=== PATIENT | female | born 1940 | race Caucasian/White ===

== ENCOUNTER 2022-10-27 21:01 | Inpatient (IN) | payer MEDICARE, OTHER ==
[~2022-10-27] VITALS: Ht 160 cm; Wt 71.2 kg
[2022-10-27 20:30] VITALS: BP 103/55; TEMP 98.4; O2SAT 90
[2022-10-27] MEDS ORDERED: REMEDY ESSENTIAL ZINC PASTE 113 GM TOP PRN (21:15)
[2022-10-27] MEDS ORDERED: ASPI-495 PO (21:46)
[2022-10-27] MEDS ORDERED: LOSA100T31 PO (21:46)
[2022-10-27] MEDS ORDERED: AMLO-212 PO (21:46)
[2022-10-27] MEDS ORDERED: DIVA250T4 PO (21:46)
[2022-10-27] MEDS ORDERED: MONT10TA22 PO (21:46)
[2022-10-27] MEDS ORDERED: IPRA0.2S48 NEB ×2 (21:46)
[2022-10-27] MEDS ORDERED: ATOR40TA PO (21:46)
[2022-10-27] MEDS ORDERED: HYDR-3980 PO (21:46)
[2022-10-27] MEDS ORDERED: QUET50TA PO (21:46)
[2022-10-27] MEDS ORDERED: DOCU100T2 PO (21:46)
[2022-10-27] MEDS ORDERED: CELE200C PO (21:46)
[2022-10-27] MEDS ORDERED: ACET-3117 PO (21:46)
[2022-10-27] MEDS ORDERED: IPRATROPIUM BROMIDE 0.5 MG/2.5 ML NEBU NEB SCH (22:45)
[2022-10-27] MEDS ORDERED: HYDROCODONE/APAP 10-325 MG TABLET PO PRN (22:45)
[2022-10-28] VITALS (11 sets, daily range): BP systolic 101–121; BP diastolic 44–75; TEMP 98.1–98.8; O2SAT 91–99
[2022-10-28] MEDS ORDERED: IPRATROPIUM BROMIDE 0.5 MG/2.5 ML NEBU NEB SCH
[2022-10-28] MEDS ORDERED: DIVALPROEX 250 MG TABLET.DR PO SCH (09:00)
[2022-10-28] MEDS ORDERED: QUETIAPINE FUMARATE 25 MG TABLET PO SCH (09:00)
[2022-10-28] MEDS ORDERED: DOCUSATE SODIUM 100 MG CAPSULE PO SCH (09:00)
[2022-10-28] MEDS ORDERED: MONTELUKAST SODIUM 10 MG TABLET PO SCH ×2 (09:00)
[2022-10-28] MEDS ORDERED: ASPIRIN EC 81 MG TABLET.DR PO SCH ×2 (09:00)
[2022-10-28] MEDS ORDERED: REMEDY ESSENTIAL ZINC PASTE 113 GM TOP PRN (09:30)
[2022-10-28] MEDS: DOCUSATE SODIUM 100 MG CAPSULE PO SCH ×2 (09:52→17:14)
[2022-10-28] MEDS: DIVALPROEX 250 MG TABLET.DR PO SCH ×2 (09:52→20:30)
[2022-10-28] MEDS: QUETIAPINE FUMARATE 25 MG TABLET PO SCH ×2 (09:52→17:14)
[2022-10-28] MEDS: IPRATROPIUM BROMIDE 0.5 MG/2.5 ML NEBU NEB SCH ×3 (11:30→20:49)
[2022-10-28] MEDS ORDERED: ERGO500040 PO (12:54)
[2022-10-28] MEDS ORDERED: OMEP1CAP25 PO (12:56)
[2022-10-28] MEDS ORDERED: FURO20TA4 PO (12:57)
[2022-10-28] MEDS ORDERED: MIRA25TA PO (12:58)
[2022-10-28] MEDS ORDERED: ICOS1CAP PO (12:59)
[2022-10-28] MEDS ORDERED: QUET100T PO (15:32)
[2022-10-28] MEDS: HYDROCODONE/APAP 10-325 MG TABLET PO PRN (17:52)
[2022-10-28] MEDS ORDERED: ATORVASTATIN 40 MG TABLET PO SCH ×2 (21:00)
[2022-10-29] VITALS (12 sets, daily range): BP systolic 109–122; BP diastolic 48–64; TEMP 97.6–99; O2SAT 90–99
[2022-10-29] MEDS: IPRATROPIUM BROMIDE 0.5 MG/2.5 ML NEBU NEB SCH ×4 (07:45→20:50)
[2022-10-29] MEDS: QUETIAPINE FUMARATE 25 MG TABLET PO SCH ×2 (08:40→16:11)
[2022-10-29] MEDS: MONTELUKAST SODIUM 10 MG TABLET PO SCH (08:40)
[2022-10-29] MEDS: ASPIRIN EC 81 MG TABLET.DR PO SCH (08:40)
[2022-10-29] MEDS: DIVALPROEX 250 MG TABLET.DR PO SCH ×2 (08:40→20:56)
[2022-10-29] MEDS: DOCUSATE SODIUM 100 MG CAPSULE PO SCH ×2 (08:45→16:11)
[2022-10-29] MEDS: HYDROCODONE/APAP 10-325 MG TABLET PO PRN (13:23)
[2022-10-29] MEDS: ATORVASTATIN 40 MG TABLET PO SCH (20:56)
[2022-10-29] MEDS: ENOXAPARIN SODIUM 40 MG/0.4 ML DISP.SYRIN SQ SCH (21:04)
[2022-10-30] VITALS (13 sets, daily range): BP systolic 94–110; BP diastolic 48–64; TEMP 98.3–99.3; O2SAT 92–99
[2022-10-30] MEDS: HYDROCODONE/APAP 10-325 MG TABLET PO PRN (06:02)
[2022-10-30] MEDS: PANTOPRAZOLE SODIUM 40 MG TABLET.DR PO SCH (06:07)
[2022-10-30 06:18] LABS: BASOPHILS % (AUTO) 0.2 % (0.0-2.0); EOSINOPHILS # (AUTO) 0.2 K/uL (0.0-0.7); EOSINOPHILS % (AUTO) 1.7 % (0.0-7.0); HEMATOCRIT 24.1 % (31.2-41.9); HEMOGLOBIN 8.3 g/dL (10.9-14.3); LYMPHOCYTES # (AUTO) 3.2 K/uL (0.8-4.8); LYMPHOCYTES % (AUTO) 34.7 % (20.5-51.5); MEAN CORPUSCULAR HEMOGLOBIN 31.9 uug (24.7-32.8); MEAN CORPUSCULAR HGB CONC 34 g/dL (32.3-35.6); MONOCYTES % (AUTO) 10.9 % (0.0-11.0); NEUTROPHILS # (AUTO) 4.8 K/uL (1.8-8.9); NEUTROPHILS % (AUTO) 52.5 % (38.5-71.5); PLATELET COUNT (AUTO) 190 K/uL (179-408); RED BLOOD CELL COUNT(AUTO) 2.59 MIL/uL (3.63-4.92); WHITE BLOOD COUNT (AUTO) 9.1 K/uL (3.8-11.8)
[2022-10-30 06:26] LABS: DIFFERENTIAL COMMENT 1
[2022-10-30 06:42] LABS: CALCIUM 8.4 mg/dL (8.5-10.1); CARBON DIOXIDE 33 mmol/L (21-32); CHLORIDE 100 mmol/L (98-107); CREATININE 0.8 mg/dL (0.6-1.3); GLUCOSE 111 mg/dL (74-106); MAGNESIUM 1.8 mg/dL (1.8-2.4); PHOSPHOROUS 4.1 mg/dL (2.5-4.9); POTASSIUM 4.2 mmol/L (3.5-5.1); SODIUM SERUM 138 mmol/L (136-145); UREA NITROGEN, BLOOD 17 mg/dL (7-18)
[2022-10-30] MEDS: IPRATROPIUM BROMIDE 0.5 MG/2.5 ML NEBU NEB SCH ×4 (07:27→19:37)
[2022-10-30] MEDS: ASPIRIN EC 81 MG TABLET.DR PO SCH (08:11)
[2022-10-30] MEDS: MONTELUKAST SODIUM 10 MG TABLET PO SCH (08:11)
[2022-10-30] MEDS: DIVALPROEX 250 MG TABLET.DR PO SCH ×2 (08:11→21:04)
[2022-10-30] MEDS: DOCUSATE SODIUM 100 MG CAPSULE PO SCH ×2 (08:11→16:08)
[2022-10-30] MEDS: QUETIAPINE FUMARATE 25 MG TABLET PO SCH ×2 (08:11→16:08)
[2022-10-30] MEDS: ATORVASTATIN 40 MG TABLET PO SCH (21:04)
[2022-10-30] MEDS: ENOXAPARIN SODIUM 40 MG/0.4 ML DISP.SYRIN SQ SCH (21:07)
[2022-10-31] VITALS (14 sets, daily range): BP systolic 94–114; BP diastolic 43–60; TEMP 97.2–98.7; O2SAT 92–99
[2022-10-31] MEDS: HYDROCODONE/APAP 10-325 MG TABLET PO PRN ×3 (00:05→13:46)
[2022-10-31] MEDS: PANTOPRAZOLE SODIUM 40 MG TABLET.DR PO SCH (06:33)
[2022-10-31] MEDS: IPRATROPIUM BROMIDE 0.5 MG/2.5 ML NEBU NEB SCH ×4 (08:14→19:56)
[2022-10-31] MEDS: QUETIAPINE FUMARATE 25 MG TABLET PO SCH ×2 (09:23→16:18)
[2022-10-31] MEDS: DIVALPROEX 250 MG TABLET.DR PO SCH ×2 (09:24→20:54)
[2022-10-31] MEDS: ASPIRIN EC 81 MG TABLET.DR PO SCH (09:24)
[2022-10-31] MEDS: DOCUSATE SODIUM 100 MG CAPSULE PO SCH ×2 (09:24→16:18)
[2022-10-31] MEDS: MONTELUKAST SODIUM 10 MG TABLET PO SCH (09:25)
[2022-10-31] MEDS: GLUCERNA SHAKE 237 ML CAN PO SCH (09:26)
[2022-10-31] MEDS: ATORVASTATIN 40 MG TABLET PO SCH (20:54)
[2022-10-31] MEDS: ENOXAPARIN SODIUM 40 MG/0.4 ML DISP.SYRIN SQ SCH (20:55)
[2022-11-01] VITALS (11 sets, daily range): BP systolic 98–117; BP diastolic 47–52; TEMP 97.9–98.6; O2SAT 92–99
[2022-11-01] MEDS: PANTOPRAZOLE SODIUM 40 MG TABLET.DR PO SCH (06:07)
[2022-11-01] MEDS: IPRATROPIUM BROMIDE 0.5 MG/2.5 ML NEBU NEB SCH ×4 (07:17→21:35)
[2022-11-01 07:18] LABS: BASOPHILS % (AUTO) 0.3 % (0.0-2.0); EOSINOPHILS # (AUTO) 0.2 K/uL (0.0-0.7); EOSINOPHILS % (AUTO) 2.2 % (0.0-7.0); HEMATOCRIT 21.2 % (31.2-41.9); LYMPHOCYTES % (AUTO) 35.4 % (20.5-51.5); MEAN CORPUSCULAR HEMOGLOBIN 31.6 uug (24.7-32.8); MEAN CORPUSCULAR HGB CONC 34 g/dL (32.3-35.6); MEAN CORPUSCULAR VOLUME 93.4 fL (75.5-95.3); MONOCYTES % (AUTO) 11.9 % (0.0-11.0); NEUTROPHILS # (AUTO) 4.3 K/uL (1.8-8.9); NEUTROPHILS % (AUTO) 50.2 % (38.5-71.5); PLATELET COUNT (AUTO) 253 K/uL (179-408); RED CELL DISTRIBUTION WIDTH 14.2 % (12.3-17.7); WHITE BLOOD COUNT (AUTO) 8.5 K/uL (3.8-11.8)
[2022-11-01 07:33] LABS: DIFFERENTIAL COMMENT 1; HEMOGLOBIN 7.2 g/dL (10.9-14.3); RED BLOOD CELL COUNT(AUTO) 2.27 MIL/uL (3.63-4.92)
[2022-11-01] MEDS ORDERED: OXYCODONE HCL 5 MG TABLET PO SCH ×2 (08:00→17:00)
[2022-11-01] MEDS: DIVALPROEX 250 MG TABLET.DR PO SCH ×2 (08:01→20:43)
[2022-11-01] MEDS: DOCUSATE SODIUM 100 MG CAPSULE PO SCH ×2 (08:01→16:06)
[2022-11-01] MEDS: MONTELUKAST SODIUM 10 MG TABLET PO SCH (08:02)
[2022-11-01] MEDS: QUETIAPINE FUMARATE 25 MG TABLET PO SCH ×2 (08:02→16:06)
[2022-11-01] MEDS: ASPIRIN EC 81 MG TABLET.DR PO SCH (08:02)
[2022-11-01] MEDS: GLUCERNA SHAKE 237 ML CAN PO SCH (08:02)
[2022-11-01 08:20] LABS: IRON, SERUM 42 ug/dL (50-175)
[2022-11-01 08:28] LABS: ALANINE AMINOTRANSFERASE 19 U/L (14-59); ALBUMIN 2.5 g/dL (3.4-5.0); ALKALINE PHOSPHATASE 57 U/L (50-136); ASPARTATE AMINOTRANSFERASE 13 U/L (15-37); BILIRUBIN,TOTAL 0.6 mg/dL (0.2-1.0); CALCIUM 8.7 mg/dL (8.5-10.1); CARBON DIOXIDE 34 mmol/L (21-32); CHLORIDE 101 mmol/L (98-107); CREATININE 0.9 mg/dL (0.6-1.3); GLUCOSE 104 mg/dL (74-106); MAGNESIUM 2.1 mg/dL (1.8-2.4); NT-PRO BNP 132 pg/mL (0-125); PHOSPHOROUS 3.9 mg/dL (2.5-4.9); POTASSIUM 4.3 mmol/L (3.5-5.1); SODIUM SERUM 138 mmol/L (136-145); TOTAL PROTEIN, SERUM 6.4 g/dL (6.4-8.2); UREA NITROGEN, BLOOD 22 mg/dL (7-18)
[2022-11-01 09:10] LABS: CHOLESTEROL < 50 mg/dL (<200); HDL CHOLESTEROL 39 mg/dL (40-60); TRIGLYCERIDES 197 MG/DL (30-150)
[2022-11-01] MEDS: ATORVASTATIN 40 MG TABLET PO SCH (20:43)
[2022-11-01] MEDS: ENOXAPARIN SODIUM 40 MG/0.4 ML DISP.SYRIN SQ SCH (20:44)
[2022-11-02] VITALS (13 sets, daily range): BP systolic 96–109; BP diastolic 50–60; TEMP 97.8–98.5; O2SAT 93–99
[2022-11-02] MEDS: PANTOPRAZOLE SODIUM 40 MG TABLET.DR PO SCH (06:11)
[2022-11-02 06:34] LABS: BASOPHILS % (AUTO) 0.4 % (0.0-2.0); EOSINOPHILS # (AUTO) 0.2 K/uL (0.0-0.7); EOSINOPHILS % (AUTO) 1.7 % (0.0-7.0); HEMATOCRIT 21.7 % (31.2-41.9); LYMPHOCYTES # (AUTO) 2.5 K/uL (0.8-4.8); LYMPHOCYTES % (AUTO) 26.5 % (20.5-51.5); MEAN CORPUSCULAR HEMOGLOBIN 31.6 uug (24.7-32.8); MEAN CORPUSCULAR HGB CONC 34 g/dL (32.3-35.6); MEAN CORPUSCULAR VOLUME 94.1 fL (75.5-95.3); MONOCYTES # (AUTO) 1.1 K/uL (0.1-1.30); MONOCYTES % (AUTO) 11.5 % (0.0-11.0); NEUTROPHILS # (AUTO) 5.6 K/uL (1.8-8.9); NEUTROPHILS % (AUTO) 59.9 % (38.5-71.5); PLATELET COUNT (AUTO) 298 K/uL (179-408); RED CELL DISTRIBUTION WIDTH 14.7 % (12.3-17.7); WHITE BLOOD COUNT (AUTO) 9.3 K/uL (3.8-11.8)
[2022-11-02 06:49] LABS: CALCIUM 8.6 mg/dL (8.5-10.1); CARBON DIOXIDE 33 mmol/L (21-32); CHLORIDE 102 mmol/L (98-107); CREATININE 0.8 mg/dL (0.6-1.3); GLUCOSE 117 mg/dL (74-106); MAGNESIUM 2.1 mg/dL (1.8-2.4); PHOSPHOROUS 3.8 mg/dL (2.5-4.9); POTASSIUM 4.2 mmol/L (3.5-5.1); SODIUM SERUM 140 mmol/L (136-145); UREA NITROGEN, BLOOD 18 mg/dL (7-18)
[2022-11-02 06:58] LABS: DIFFERENTIAL COMMENT 1; HEMOGLOBIN 7.3 g/dL (10.9-14.3); RED BLOOD CELL COUNT(AUTO) 2.31 MIL/uL (3.63-4.92)
[2022-11-02] MEDS: IPRATROPIUM BROMIDE 0.5 MG/2.5 ML NEBU NEB SCH ×4 (07:11→21:12)
[2022-11-02] MEDS: DOCUSATE SODIUM 100 MG CAPSULE PO SCH ×2 (08:34→17:55)
[2022-11-02] MEDS: DIVALPROEX 250 MG TABLET.DR PO SCH ×2 (08:34→20:55)
[2022-11-02] MEDS: ASPIRIN EC 81 MG TABLET.DR PO SCH (08:34)
[2022-11-02] MEDS: QUETIAPINE FUMARATE 25 MG TABLET PO SCH ×2 (08:34→17:55)
[2022-11-02] MEDS: CYANOCOBALAMIN 1000 MCG/ML VIAL IM SCH (08:35)
[2022-11-02] MEDS: MONTELUKAST SODIUM 10 MG TABLET PO SCH (08:35)
[2022-11-02] MEDS: OXYCODONE HCL 5 MG TABLET PO SCH ×2 (08:46→13:58)
[2022-11-02] MEDS: GLUCERNA SHAKE 237 ML CAN PO SCH (08:47)
[2022-11-02] MEDS ORDERED: ALBUTEROL SULFATE 2.5 MG/ 0.5 ML NEBU NEB PRN (10:00)
[2022-11-02] MEDS: GUAIFENESIN/DEXTROMETHORPHAN 5 ML UDC PO PRN ×2 (10:09→17:55)
[2022-11-02] MEDS ORDERED: ALBUTEROL SULFATE 2.5 MG/3 ML NEBU NEB PRN (10:15)
[2022-11-02] MEDS ORDERED: FUROSEMIDE 20 MG TABLET PO ONE (14:45)
[2022-11-02] MEDS: BISACODYL 10 MG SUPP.RECT RC SCH (18:47)
[2022-11-02] MEDS: HYDROCODONE/APAP 10-325 MG TABLET PO PRN (22:00)
[2022-11-02 22:58] LABS: *BILIRUBIN,URIN NEGATIVE (NEGATIVE); *COLOR,URINE YELLOW (YELLOW); *KETONES,URINE NEGATIVE (NEGATIVE); *PROTEIN,URINE NEGATIVE (NEGATIVE); *UROBILINOGEN,URINE 0.2 E.U./dl (NORMAL); LEUKOCYTE ESTERASE ,URINE 2+ (NEGATIVE); NITRITE, URINE NEGATIVE (NEGATIVE); PH,URINE 6.5 (5.0-8.0); UGLUCOSE NEGATIVE (NEGATIVE)
[2022-11-02 23:05] LABS: *BLOOD, URINE TRACE (NEGATIVE); *CLARITY,URINE SLIGHTLY CLOUDY (CLEAR)
[2022-11-03] VITALS (13 sets, daily range): BP systolic 85–100; BP diastolic 45–57; TEMP 98.4–98.9; O2SAT 90–98
[2022-11-03 01:40] LABS: *OCCULT BLOOD STOOL NEGATIVE (NEGATIVE)
[2022-11-03 01:42] LABS: BACTERIA,URINE FEW /HPF (NONE SEEN); RBC,URINE 0-3 /HPF (0-3); SQUAMOUS EPITHELIAL CELL,UR FEW /HPF (NONE SEEN); WBC,URINE 50-80 /HPF (0-3)
[2022-11-03] MEDS: PANTOPRAZOLE SODIUM 40 MG TABLET.DR PO SCH (06:31)
[2022-11-03] MEDS: IPRATROPIUM BROMIDE 0.5 MG/2.5 ML NEBU NEB SCH ×4 (08:25→19:33)
[2022-11-03] MEDS: BISACODYL 10 MG SUPP.RECT RC SCH (09:00)
[2022-11-03] MEDS: DIVALPROEX 250 MG TABLET.DR PO SCH ×2 (09:03→20:39)
[2022-11-03] MEDS: ASPIRIN EC 81 MG TABLET.DR PO SCH (09:04)
[2022-11-03] MEDS: DOCUSATE SODIUM 100 MG CAPSULE PO SCH ×2 (09:04→18:02)
[2022-11-03] MEDS: OXYCODONE HCL 5 MG TABLET PO SCH ×2 (09:05→13:14)
[2022-11-03] MEDS: QUETIAPINE FUMARATE 25 MG TABLET PO SCH ×2 (09:06→18:02)
[2022-11-03] MEDS: MONTELUKAST SODIUM 10 MG TABLET PO SCH (09:06)
[2022-11-03] MEDS: CYANOCOBALAMIN 1000 MCG/ML VIAL IM SCH (09:06)
[2022-11-03] MEDS: GLUCERNA SHAKE 237 ML CAN PO SCH (09:26)
[2022-11-03] MEDS: CEFTRIAXONE 1 G in IV DEXTROSE 5% 50 ML IV SCH (10:20)
[2022-11-04] VITALS (13 sets, daily range): BP systolic 91–107; BP diastolic 43–48; TEMP 97.2–98.9; O2SAT 88–97
[2022-11-04] MEDS: PANTOPRAZOLE SODIUM 40 MG TABLET.DR PO SCH (06:18)
[2022-11-04] MEDS: IPRATROPIUM BROMIDE 0.5 MG/2.5 ML NEBU NEB SCH ×4 (07:16→19:24)
[2022-11-04] MEDS: QUETIAPINE FUMARATE 25 MG TABLET PO SCH ×2 (08:25→17:24)
[2022-11-04] MEDS: CYANOCOBALAMIN 1000 MCG/ML VIAL IM SCH (08:25)
[2022-11-04] MEDS: MONTELUKAST SODIUM 10 MG TABLET PO SCH (08:25)
[2022-11-04] MEDS: ASPIRIN EC 81 MG TABLET.DR PO SCH (08:25)
[2022-11-04] MEDS: GLUCERNA SHAKE 237 ML CAN PO SCH (08:25)
[2022-11-04] MEDS: OXYCODONE HCL 5 MG TABLET PO SCH ×2 (08:25→13:22)
[2022-11-04] MEDS: BISACODYL 10 MG SUPP.RECT RC SCH (08:25)
[2022-11-04] MEDS: DIVALPROEX 250 MG TABLET.DR PO SCH ×2 (08:25→20:42)
[2022-11-04] MEDS: DOCUSATE SODIUM 100 MG CAPSULE PO SCH ×2 (08:25→17:24)
[2022-11-04] MEDS: CEFTRIAXONE 1 G in IV DEXTROSE 5% 50 ML IV SCH (10:40)
[2022-11-05] VITALS (10 sets, daily range): BP systolic 92–116; BP diastolic 44–62; TEMP 98–100.5; O2SAT 90–99
[2022-11-05] MEDS ORDERED: ACETAMINOPHEN 325 MG TABLET PO PRN (06:00)
[2022-11-05] MEDS: PANTOPRAZOLE SODIUM 40 MG TABLET.DR PO SCH (06:20)
[2022-11-05 06:54] LABS: BASOPHILS % (AUTO) 0.2 % (0.0-2.0); EOSINOPHILS % (AUTO) 0.3 % (0.0-7.0); MEAN CORPUSCULAR VOLUME 93.5 fL (75.5-95.3)
[2022-11-05 06:56] LABS: HEMATOCRIT 21.7 % (31.2-41.9); LYMPHOCYTES # (AUTO) 1.4 K/uL (0.8-4.8); LYMPHOCYTES % (AUTO) 11.9 % (20.5-51.5); MEAN CORPUSCULAR HEMOGLOBIN 30.9 uug (24.7-32.8); MEAN CORPUSCULAR HGB CONC 33 g/dL (32.3-35.6); MONOCYTES % (AUTO) 8.6 % (0.0-11.0); NEUTROPHILS # (AUTO) 9.5 K/uL (1.8-8.9); PLATELET COUNT (AUTO) 309 K/uL (179-408); RED CELL DISTRIBUTION WIDTH 14.7 % (12.3-17.7)
[2022-11-05] MEDS: IPRATROPIUM BROMIDE 0.5 MG/2.5 ML NEBU NEB SCH ×4 (07:13→20:12)
[2022-11-05 07:23] LABS: DIFFERENTIAL COMMENT 1; HEMOGLOBIN 7.2 g/dL (10.9-14.3); RED BLOOD CELL COUNT(AUTO) 2.32 MIL/uL (3.63-4.92)
[2022-11-05 07:29] LABS: ALBUMIN 2.5 g/dL (3.4-5.0); BILIRUBIN,TOTAL 0.5 mg/dL (0.2-1.0); CALCIUM 8.7 mg/dL (8.5-10.1); CREATININE 0.9 mg/dL (0.6-1.3); MAGNESIUM 2.2 mg/dL (1.8-2.4); POTASSIUM 4.5 mmol/L (3.5-5.1); TOTAL PROTEIN, SERUM 6.7 g/dL (6.4-8.2)
[2022-11-05] MEDS: OXYCODONE HCL 5 MG TABLET PO SCH ×2 (09:29→12:44)
[2022-11-05] MEDS: CYANOCOBALAMIN 1000 MCG/ML VIAL IM SCH (09:30)
[2022-11-05] MEDS: ASPIRIN EC 81 MG TABLET.DR PO SCH (09:30)
[2022-11-05] MEDS: MONTELUKAST SODIUM 10 MG TABLET PO SCH (09:30)
[2022-11-05] MEDS: BISACODYL 10 MG SUPP.RECT RC SCH (09:30)
[2022-11-05] MEDS: DOCUSATE SODIUM 100 MG CAPSULE PO SCH ×2 (09:30→16:51)
[2022-11-05] MEDS: GLUCERNA SHAKE 237 ML CAN PO SCH (09:31)
[2022-11-05] MEDS: DIVALPROEX 250 MG TABLET.DR PO SCH ×2 (09:33→20:19)
[2022-11-05] MEDS: QUETIAPINE FUMARATE 25 MG TABLET PO SCH ×2 (09:33→16:52)
[2022-11-05] MEDS: CEFTRIAXONE 1 G in IV DEXTROSE 5% 50 ML IV SCH (10:20)
[2022-11-05] MEDS ORDERED: EPOETIN ALFA 20,000 UNIT/ML ML SQ ONE (12:00)
[2022-11-05] MEDS ORDERED: EPOETIN ALFA-EPBX 20,000 UNIT/ML VIAL SQ ONE (13:00)
[2022-11-05] MEDS ORDERED: FUROSEMIDE 20 MG TABLET PO ONE (13:00)
[2022-11-06] VITALS (12 sets, daily range): BP systolic 95–116; BP diastolic 42–55; TEMP 98.2–99.1; O2SAT 90–99
[2022-11-06] MEDS: PANTOPRAZOLE SODIUM 40 MG TABLET.DR PO SCH (06:04)
[2022-11-06] MEDS: IPRATROPIUM BROMIDE 0.5 MG/2.5 ML NEBU NEB SCH ×4 (07:49→19:53)
[2022-11-06] MEDS: OXYCODONE HCL 5 MG TABLET PO SCH ×2 (08:27→13:12)
[2022-11-06] MEDS: ASPIRIN EC 81 MG TABLET.DR PO SCH (08:28)
[2022-11-06] MEDS: QUETIAPINE FUMARATE 25 MG TABLET PO SCH ×2 (08:28→16:58)
[2022-11-06] MEDS: BISACODYL 10 MG SUPP.RECT RC SCH (08:28)
[2022-11-06] MEDS: MONTELUKAST SODIUM 10 MG TABLET PO SCH (08:28)
[2022-11-06] MEDS: DIVALPROEX 250 MG TABLET.DR PO SCH ×2 (08:28→22:01)
[2022-11-06] MEDS: CYANOCOBALAMIN 1000 MCG/ML VIAL IM SCH (08:29)
[2022-11-06] MEDS: DOCUSATE SODIUM 100 MG CAPSULE PO SCH ×2 (08:29→16:58)
[2022-11-06] MEDS: GLUCERNA SHAKE 237 ML CAN PO SCH (08:29)
[2022-11-06] MEDS: CEFTRIAXONE 1 G in IV DEXTROSE 5% 50 ML IV SCH (10:03)
[2022-11-06] MEDS: GUAIFENESIN/DEXTROMETHORPHAN 5 ML UDC PO PRN (13:13)
[2022-11-07] VITALS (11 sets, daily range): BP systolic 99–126; BP diastolic 53–66; TEMP 98.1–98.6; O2SAT 90–99
[2022-11-07] MEDS: PANTOPRAZOLE SODIUM 40 MG TABLET.DR PO SCH (06:29)
[2022-11-07] MEDS: IPRATROPIUM BROMIDE 0.5 MG/2.5 ML NEBU NEB SCH ×4 (08:25→19:54)
[2022-11-07] MEDS: MONTELUKAST SODIUM 10 MG TABLET PO SCH (08:38)
[2022-11-07] MEDS: DIVALPROEX 250 MG TABLET.DR PO SCH ×2 (08:38→21:18)
[2022-11-07] MEDS: OXYCODONE HCL 5 MG TABLET PO SCH ×2 (08:38→13:52)
[2022-11-07] MEDS: BISACODYL 10 MG SUPP.RECT RC SCH (08:38)
[2022-11-07] MEDS: CYANOCOBALAMIN 1000 MCG/ML VIAL IM SCH (08:38)
[2022-11-07] MEDS: QUETIAPINE FUMARATE 25 MG TABLET PO SCH ×2 (08:38→17:37)
[2022-11-07] MEDS: DOCUSATE SODIUM 100 MG CAPSULE PO SCH ×2 (08:38→17:37)
[2022-11-07] MEDS: ASPIRIN EC 81 MG TABLET.DR PO SCH (08:38)
[2022-11-07] MEDS: GLUCERNA SHAKE 237 ML CAN PO SCH (08:39)
[2022-11-07] MEDS: CEFTRIAXONE 1 G in IV DEXTROSE 5% 50 ML IV SCH (10:10)
[2022-11-07] MEDS ORDERED: MEROPENEM 500 MG in IV NORMAL SALINE 50 ML IV SCH (15:00)
[2022-11-07] MEDS ORDERED: CIPROFLOXACIN HCL 250 MG TABLET ONE (20:49)
[2022-11-07] MEDS: CIPROFLOXACIN HCL 250 MG TABLET PO SCH (21:18)
[2022-11-08] VITALS (12 sets, daily range): BP systolic 93–120; BP diastolic 49–60; TEMP 98.2–98.8; O2SAT 89–99
[2022-11-08] MEDS: PANTOPRAZOLE SODIUM 40 MG TABLET.DR PO SCH (06:34)
[2022-11-08] MEDS: IPRATROPIUM BROMIDE 0.5 MG/2.5 ML NEBU NEB SCH ×4 (07:40→19:10)
[2022-11-08] MEDS: DOCUSATE SODIUM 100 MG CAPSULE PO SCH ×2 (08:08→16:20)
[2022-11-08] MEDS: ASPIRIN EC 81 MG TABLET.DR PO SCH (08:09)
[2022-11-08] MEDS: DIVALPROEX 250 MG TABLET.DR PO SCH ×2 (08:09→20:03)
[2022-11-08] MEDS: CIPROFLOXACIN HCL 250 MG TABLET PO SCH ×2 (08:09→20:03)
[2022-11-08] MEDS: QUETIAPINE FUMARATE 25 MG TABLET PO SCH ×2 (08:09→16:20)
[2022-11-08] MEDS: CYANOCOBALAMIN 1000 MCG/ML VIAL IM SCH (08:09)
[2022-11-08] MEDS: OXYCODONE HCL 5 MG TABLET PO SCH ×2 (08:09→12:21)
[2022-11-08] MEDS: MONTELUKAST SODIUM 10 MG TABLET PO SCH (08:09)
[2022-11-08] MEDS: BISACODYL 10 MG SUPP.RECT RC SCH (08:40)
[2022-11-08] MEDS: GLUCERNA SHAKE 237 ML CAN PO SCH (08:40)
[2022-11-09] VITALS (10 sets, daily range): BP systolic 90–126; BP diastolic 41–66; TEMP 97.4–98.9; O2SAT 92–99
[2022-11-09] MEDS: PANTOPRAZOLE SODIUM 40 MG TABLET.DR PO SCH (06:01)
[2022-11-09] MEDS: IPRATROPIUM BROMIDE 0.5 MG/2.5 ML NEBU NEB SCH ×4 (07:46→19:41)
[2022-11-09] MEDS: GLUCERNA SHAKE 237 ML CAN PO SCH ×2 (08:32→17:07)
[2022-11-09] MEDS: ASPIRIN EC 81 MG TABLET.DR PO SCH (08:32)
[2022-11-09] MEDS: MONTELUKAST SODIUM 10 MG TABLET PO SCH (08:32)
[2022-11-09] MEDS: QUETIAPINE FUMARATE 25 MG TABLET PO SCH ×2 (08:32→17:06)
[2022-11-09] MEDS: DOCUSATE SODIUM 100 MG CAPSULE PO SCH ×2 (08:32→17:06)
[2022-11-09] MEDS: DIVALPROEX 250 MG TABLET.DR PO SCH ×2 (08:32→21:24)
[2022-11-09] MEDS: BISACODYL 10 MG SUPP.RECT RC SCH ×2 (08:33→09:00)
[2022-11-09] MEDS: CIPROFLOXACIN HCL 250 MG TABLET PO SCH ×2 (08:37→21:25)
[2022-11-09] MEDS: OXYCODONE HCL 5 MG TABLET PO SCH ×2 (08:38→13:34)
[2022-11-09] MEDS ORDERED: GLUCERNA SHAKE 237 ML CAN PO SCH (11:45)
[2022-11-09] MEDS: VITAMINS A AND D OINT 42 GM TUBE TP PRN (12:02)
[2022-11-10] VITALS (18 sets, daily range): BP systolic 98–160; BP diastolic 56–70; TEMP 95.7–98.4; O2SAT 92–99
[2022-11-10] MEDS: PANTOPRAZOLE SODIUM 40 MG TABLET.DR PO SCH (06:08)
[2022-11-10] MEDS: IPRATROPIUM BROMIDE 0.5 MG/2.5 ML NEBU NEB SCH ×4 (07:54→20:42)
[2022-11-10] MEDS: DOCUSATE SODIUM 100 MG CAPSULE PO SCH ×2 (08:24→16:59)
[2022-11-10] MEDS: DIVALPROEX 250 MG TABLET.DR PO SCH ×2 (08:24→20:23)
[2022-11-10] MEDS: OXYCODONE HCL 5 MG TABLET PO SCH ×2 (08:24→13:58)
[2022-11-10] MEDS: CIPROFLOXACIN HCL 250 MG TABLET PO SCH ×2 (08:24→20:24)
[2022-11-10] MEDS: QUETIAPINE FUMARATE 25 MG TABLET PO SCH ×2 (08:25→16:59)
[2022-11-10] MEDS: ASPIRIN EC 81 MG TABLET.DR PO SCH (08:25)
[2022-11-10] MEDS: MONTELUKAST SODIUM 10 MG TABLET PO SCH (08:25)
[2022-11-10] MEDS: GLUCERNA SHAKE 237 ML CAN PO SCH ×4 (08:25→16:59)
[2022-11-10] MEDS: BISACODYL 10 MG SUPP.RECT RC SCH (08:47)
[2022-11-10] MEDS: VITAMINS A AND D OINT 42 GM TUBE TP PRN (11:25)
[2022-11-11] VITALS (12 sets, daily range): BP systolic 114–130; BP diastolic 56–69; TEMP 97.6–98.7; O2SAT 93–99
[2022-11-11] MEDS: PANTOPRAZOLE SODIUM 40 MG TABLET.DR PO SCH (06:34)
[2022-11-11] MEDS: IPRATROPIUM BROMIDE 0.5 MG/2.5 ML NEBU NEB SCH ×5 (07:53→20:56)
[2022-11-11] MEDS: QUETIAPINE FUMARATE 25 MG TABLET PO SCH ×2 (08:59→17:17)
[2022-11-11] MEDS: OXYCODONE HCL 5 MG TABLET PO SCH ×2 (08:59→13:14)
[2022-11-11] MEDS: DIVALPROEX 250 MG TABLET.DR PO SCH ×2 (09:00→20:09)
[2022-11-11] MEDS: GLUCERNA SHAKE 237 ML CAN PO SCH ×3 (09:00→17:18)
[2022-11-11] MEDS: BISACODYL 10 MG SUPP.RECT RC SCH (09:00)
[2022-11-11] MEDS: ASPIRIN EC 81 MG TABLET.DR PO SCH (09:00)
[2022-11-11] MEDS: DOCUSATE SODIUM 100 MG CAPSULE PO SCH ×2 (09:00→17:17)
[2022-11-11] MEDS: MONTELUKAST SODIUM 10 MG TABLET PO SCH (09:00)
[2022-11-11] MEDS: CIPROFLOXACIN HCL 250 MG TABLET PO SCH ×2 (09:02→20:09)
[2022-11-12] VITALS (11 sets, daily range): BP systolic 105–128; BP diastolic 44–64; TEMP 97.1–98.9; O2SAT 94–99
[2022-11-12] MEDS: PANTOPRAZOLE SODIUM 40 MG TABLET.DR PO SCH (06:36)
[2022-11-12] MEDS: IPRATROPIUM BROMIDE 0.5 MG/2.5 ML NEBU NEB SCH ×4 (07:36→20:39)
[2022-11-12] MEDS: OXYCODONE HCL 5 MG TABLET PO SCH ×2 (08:19→13:19)
[2022-11-12] MEDS: DOCUSATE SODIUM 100 MG CAPSULE PO SCH ×2 (08:20→16:46)
[2022-11-12] MEDS: BISACODYL 10 MG SUPP.RECT RC SCH (08:20)
[2022-11-12] MEDS: QUETIAPINE FUMARATE 25 MG TABLET PO SCH ×2 (08:20→16:47)
[2022-11-12] MEDS: ASPIRIN EC 81 MG TABLET.DR PO SCH (08:20)
[2022-11-12] MEDS: DIVALPROEX 250 MG TABLET.DR PO SCH ×2 (08:20→20:19)
[2022-11-12] MEDS: MONTELUKAST SODIUM 10 MG TABLET PO SCH (08:20)
[2022-11-12] MEDS: GLUCERNA SHAKE 237 ML CAN PO SCH ×3 (08:21→16:47)
[2022-11-12] MEDS: CIPROFLOXACIN HCL 250 MG TABLET PO SCH ×2 (08:25→20:19)
[2022-11-13] VITALS (7 sets, daily range): BP systolic 111–127; BP diastolic 50–57; TEMP 98.7–98.8; O2SAT 92–99
[2022-11-13] MEDS: PANTOPRAZOLE SODIUM 40 MG TABLET.DR PO SCH (07:13)
[2022-11-13] MEDS: IPRATROPIUM BROMIDE 0.5 MG/2.5 ML NEBU NEB SCH ×2 (07:42→10:42)
[2022-11-13] MEDS: OXYCODONE HCL 5 MG TABLET PO SCH ×2 (08:43→13:50)
[2022-11-13] MEDS: DOCUSATE SODIUM 100 MG CAPSULE PO SCH (08:44)
[2022-11-13] MEDS: ASPIRIN EC 81 MG TABLET.DR PO SCH (08:44)
[2022-11-13] MEDS: DIVALPROEX 250 MG TABLET.DR PO SCH (08:44)
[2022-11-13] MEDS: BISACODYL 10 MG SUPP.RECT RC SCH ×2 (08:44→08:57)
[2022-11-13] MEDS: QUETIAPINE FUMARATE 25 MG TABLET PO SCH (08:44)
[2022-11-13] MEDS: MONTELUKAST SODIUM 10 MG TABLET PO SCH (08:44)
[2022-11-13] MEDS: CIPROFLOXACIN HCL 250 MG TABLET PO SCH (08:44)
[2022-11-13] MEDS: GLUCERNA SHAKE 237 ML CAN PO SCH ×2 (08:45→13:50)
[2022-11-13] MEDS: VITAMINS A AND D OINT 42 GM TUBE TP PRN (08:57)
== END 2022-11-13 14:50 | disposition home health service (06) | DRG 559 ==
PROVIDERS: ADMIT Physical Medicine & Rehabilitation Pain Medicine; ATTEND Physical Medicine & Rehabilitation Pain Medicine
DX: S72.001D Fracture of unspecified part of neck of right femur, subsequent encounter for closed fracture with routine healing (principal); I50.31 Acute diastolic (congestive) heart failure; J96.01 Acute respiratory failure with hypoxia; J96.02 Acute respiratory failure with hypercapnia; D68.59 Other primary thrombophilia; N39.0 Urinary tract infection, site not specified; R57.9 Shock, unspecified; I48.20 Chronic atrial fibrillation, unspecified; B96.1 Klebsiella pneumoniae [K. pneumoniae] as the cause of diseases classified elsewhere; S42.032D Displaced fracture of lateral end of left clavicle, subsequent encounter for fracture with routine healing; W19.XXXD Unspecified fall, subsequent encounter; I10 Essential (primary) hypertension; I48.91 Unspecified atrial fibrillation; J45.909 Unspecified asthma, uncomplicated; D64.9 Anemia, unspecified; E53.8 Deficiency of other specified B group vitamins; G89.29 Other chronic pain; I11.0 Hypertensive heart disease with heart failure; I35.8 Other nonrheumatic aortic valve disorders; M19.90 Unspecified osteoarthritis, unspecified site; R73.03 Prediabetes
CPT/HCPCS: 36415; 71045; 73501; 83550; 83735; 84100; 84443; 85025; 93005; 93307; 94640; 94760; 97535-GO-CO; A4663; C1758; J0696; J0885; J1650; J2185; J3420; J3490; J3590